=== PATIENT | male | born 1970 | race Caucasian/White ===

== ENCOUNTER 2023-07-30 09:22 | Day surgery (SDC) | payer BC ==
[2023-07-30] MEDS ORDERED: Ringers Lactate 1,000 ML IV ONE (10:09)
[2023-07-30 10:42] LABS: Potassium 3.8 mEq/L (3.5-5.1)
[2023-07-30] MEDS ORDERED: propofoL 200 MG/20 ML VIAL IV ONE ×2 (12:06)
--- NOTE | 2023-07-30 18:05 | EKG ---
Test Date: 2023-07-30 Test Time: 11:09:40 Planner Scheduler: NELIA MEASUREMENT RESULTS: Intervals: Rate: 61 WI: 164 QRSD: 84 QT: 430 QTc: 432 [place]: P: 67 WI: 164 QRS: 74 T: 70 INTERPRETIVE STATEMENTS: Normal sinus rhythm Normal ECG No previous ECG available for comparison Electronically Signed On 07-30-23 18:04:35 CDT by Stef Colvin
--- NOTE | 2023-07-31 11:57 | EKG ---
Test Date: 2023-07-30 Test Time: 11:21:57 Senior Finance Manager: NELIA MEASUREMENT RESULTS: Intervals: Rate: 82 MN: 154 QRSD: 78 QT: 382 QTc: 446 [place]: P: 48 MN: 154 QRS: 39 T: 8 INTERPRETIVE STATEMENTS: Normal sinus rhythm Normal ECG Compared to ECG 07/30/2023 11:11:45 No significant changes Electronically Signed On 07-31-23 11:54:25 CDT by Stef Colvin
--- NOTE | 2023-07-31 11:58 | EKG ---
Test Date: 2023-07-30 Test Time: 11:11:45 Dispensing Optician: NELIA MEASUREMENT RESULTS: Intervals: Rate: 64 [place]: 160 QRSD: 88 QT: 442 QTc: 455 [place]: P: 68 [place]: 160 QRS: 74 T: 67 INTERPRETIVE STATEMENTS: Normal sinus rhythm Normal ECG Compared to ECG 07/30/2023 11:09:40 No significant changes Electronically Signed On 07-31-23 11:54:28 CDT by Stef Colvin
== END 2023-07-30 13:05 | disposition home or self-care (01) ==
LOC: OR 09:22
PROVIDERS: ATTEND Surgery
PROC: 0DBP8ZX Excision of Rectum, Via Natural or Artificial Opening Endoscopic, Diagnostic (ICD-10-PCS; principal; 2023-07-30 12:15)
DX: Z12.11 Encounter for screening for malignant neoplasm of colon (principal); F64.8 Other gender identity disorders; K63.5 Polyp of colon
CPT/HCPCS: 45380; 93005; 80048; 36415; 88305; J2704 ×2; J7120

== ENCOUNTER 2023-08-03 09:28 | Day surgery (SDC) | payer BC ==
[2023-08-03] MEDS ORDERED: Ringers Lactate 1,000 ML IV ONE (10:05)
[2023-08-03] MEDS ORDERED: BUPIVACAINE 0.25% PF 30 ML VIAL ONE (11:58)
[2023-08-03] MEDS ORDERED: FENTANYL CITR 100 MCG/2 ML ONE (12:00)
[2023-08-03] MEDS ORDERED: propofoL 200 MG/20 ML VIAL IV ONE (12:00)
[2023-08-03] MEDS ORDERED: MIDAZOLAM HCL 2 MG/2 ML INJ ONE (12:01)
[2023-08-03] MEDS ORDERED: ONDANSETRON 4 MG/2 ML VIAL ONE (12:01)
[2023-08-03] MEDS ORDERED: LIDOCAINE 2% MPF 5 ML VIAL ONE (12:01)
[2023-08-03] MEDS: CEFAZOLIN SODIUM 2 GM/VIAL ONE ×2 (12:04→12:26)
[2023-08-03] MEDS ORDERED: dexAMETHasone 4 MG/ML VIAL ONE (12:30)
[2023-08-03] MEDS ORDERED: KETOROLAC 30 MG/ML INJ ONE (12:30)
--- NOTE | 2023-08-03 12:44 | P.OP ---
Preoperative diagnosis: 3 Back Sebaceous Cysts Postoperative diagnosis: 3 Back Sebaceous Cysts Primary procedure: Wide Excision of 3 Back Sebaceous Cysts Anesthesia: GETA + Local Estimated blood loss: <10cc Specimen: Debridement Tissue Findings: 3 Back Sebaceous Cysts - Right / Left upper, single lower Complications: None Transferred to: Recovery Room Condition: Good
[2023-08-03 14:01] VITALS: BP 114/81; TEMP 96.8; O2SAT 100
[2023-08-03] MEDS ORDERED: HYDROCODONE/APAP 10/325 TAB PO ONE (14:11)
[2023-08-03] MEDS ORDERED: HYDROCODONE/APAP 10/325 TAB ONE (14:28)
--- NOTE | 2023-08-03 21:43 | OP ---
Date of Procedure: 08/03/2023 Surgeon: Augusto Kulkarni MD, Preoperative Diagnosis: Three back sebaceous cysts. Postoperative Diagnosis: Three back sebaceous cysts. Procedure Performed: Wide excision of 3 sebaceous cysts of the back. Anesthesia: General endotracheal plus local with 0.25% Marcaine. Estimated Blood Loss: Less than 10 cc. Specimen: Debrided tissue. Findings: Three sebaceous cysts of the back, 1 upper right, 1 upper left, and 1 central lower. The upper right and upper left were approximately 2.5 cm x 1.5, cm x 1.5 cm. The lower was approximately 3.5 cm x 4 cm x 3 cm. Complications: None. Disposition: The patient was transferred to the recovery room in good condition. Procedure In Detail: After informed consent was obtained, the patient was brought to the operating r oom, and prepped and draped in the usual sterile fashion. After adequate anesthesia was achieved, I made an elliptical incision around the sebaceous cysts as described above down through the subcutaneo us tissues. Electrocautery was used to dissect circumferentially around the entire capsules. Sebace ous type material was appreciated. This was removed and sent off for pathologic examination with the entire capsule surrounding this. The area was copiously irrigated. Hemostasis was easily achieved with electrocautery. The 2 upper back sebaceous cyst excision sites were closed using interrupted 3- 0 Vicryl suture in a deep dermal plane as well as subcutaneous 4-0 Monocryl in a running fashion and Dermabond was placed over top. A single lower back cyst was packed with Vashe soaked gauze as it had a somewhat discolor appearance and could not be closed adequately without tension. As such, this wo und was packed and sterile dressing was placed over top. The patient tolerated the procedure well wi thout evidence of complication and transferred to PACU in good condition. All counts were correct at the end of the case. TK/MODL Voice ID: [id number] Report ID: [id number]
== END 2023-08-03 14:36 | disposition home or self-care (01) ==
LOC: OR 09:28
PROVIDERS: ATTEND Surgery
PROC: 0JB70ZZ Excision of Back Subcutaneous Tissue and Fascia, Open Approach (ICD-10-PCS; principal; 2023-08-03 11:15)
DX: L72.9 Follicular cyst of the skin and subcutaneous tissue, unspecified (principal); E78.00 Pure hypercholesterolemia, unspecified
CPT/HCPCS: 87070; 87205; 88304; 87075; 11406 ×3; J2704; J1100; J2001; J2250; J3010; J2405; J7120